=== PATIENT | female | born 1960 | race Caucasian/White ===

== ENCOUNTER 2020-07-11 12:45 | Day surgery (SDC) | payer BC ==
[2020-07-10 11:49] VITALS: BMI 24.7
[2020-07-11] MEDS ORDERED: LIDOCAINE HCL/PF 2% SDV 5ML VIAL ONE (13:26)
[2020-07-11 13:55] VITALS: TEMP 98.2
[2020-07-11 14:24] VITALS: BP 116/62; PULSE 56
== END 2020-07-11 14:52 | disposition home or self-care (01) ==
LOC: FASU-ENDO 12:45
PROVIDERS: ATTEND Internal Medicine Gastroenterology
PROC: 0DB78ZX Excision of Stomach, Pylorus, Via Natural or Artificial Opening Endoscopic, Diagnostic (ICD-10-PCS; 2020-07-11)
PROC: 0DB48ZX Excision of Esophagogastric Junction, Via Natural or Artificial Opening Endoscopic, Diagnostic (ICD-10-PCS; 2020-07-11)
PROC: 0DB98ZX Excision of Duodenum, Via Natural or Artificial Opening Endoscopic, Diagnostic (ICD-10-PCS; principal; 2020-07-11 13:37)
DX: K29.50 Unspecified chronic gastritis without bleeding (principal); K31.89 Other diseases of stomach and duodenum; R10.13 Epigastric pain
CPT/HCPCS: 88305-TC; 88342-TC

== ENCOUNTER 2020-08-12 10:46 | Day surgery (SDC) | payer BC ==
[2020-08-07 14:56] VITALS: BMI 25.4
[2020-08-12 11:29] VITALS: TEMP 98.2
[2020-08-12 12:44] VITALS: BP 106/67; PULSE 64
== END 2020-08-12 13:10 | disposition home or self-care (01) ==
LOC: FASU-ENDO 10:46
PROVIDERS: ATTEND Internal Medicine Gastroenterology
PROC: 0DJD8ZZ Inspection of Lower Intestinal Tract, Via Natural or Artificial Opening Endoscopic (ICD-10-PCS; principal; 2020-08-12 11:52)
DX: K92.1 Melena (principal); K64.1 Second degree hemorrhoids